=== PATIENT | male | born 2000 | race Caucasian/White ===

== ENCOUNTER 2024-04-08 02:37 | Emergency (ER) | payer BC, SELFPAY ==
[2024-04-08 02:58] VITALS: BP 144/61; BMI 28.9
--- NOTE | 2024-04-08 03:41 | ED.GENMED ---
History of Present Illness
General
Chief Complaint: Alcohol Problem
Source: patient, ambulance crew and police
Exam Limitations: none
Time Seen by Provider: 04/08/24 03:22
Nursing documentation reviewed up to this point in time: agreed with
History of Present Illness
History of Present Illness:
This is a 23-year-old male who was found by police sleeping in the back of his vehicle. He is brought to the ED for further evaluation.
Patient admits to significant alcohol consumption tonight after a break-up with his girlfriend. He denies suicidal thoughts or plan. Denies drug use.
Denies recent injury nor fall.
Past History
Past History
ED Past Medical History: Psychiatric and Other (ADHD)
ED Past Surgical History: None
Social History
Tobacco: Non-smoker
Alcohol: Occasional
Drug: Marijuana
Personal: Single
Living: with family
Employment: Employed
Family History
Family History: Other (Noncontributory)
Phy Exam
Physical Exam
Physical Exam:
GENERAL: 23-year-old male appears his stated age, appears moderately intoxicated, oriented x 3, admits to acute sadness related to recent break-up with his girlfriend but remains cooperative with staff. Denies injury nor falls.
EYE: pupils equal and reactive. anicteric
NECK: Supple, nontender, no meningismus, no significant adenopathy.
ENT: oral mucosa is moist. No rhinorrhea.
CARDIAC: Regular rate and rhythm. no murmur.
LUNGS: Clear breath sounds bilaterally, no acute respiratory distress, no wheezes/rales/rhonchi
ABDOMEN: Soft, nondistended, without focal tenderness, no r/g, no cvat. normoactive BS.
NEUROLOGICAL: Awake and alert, oriented x 3, appears moderately intoxicated, no focal neuro deficits.
SKIN: Warm and dry, normal color, skin intact. No rash.
MUSCULOSKELETAL: No C/C/E. peripheral pulses are full and equal b/l. No palpable tenderness.
PSYCH: Mildly anxious, admits to recent break-up with girlfriend but denies suicidal thoughts or plan.
Scores
Withdrawal Assessment of Alcohol
Withdrawal Assessment Completed?: Not applicable
Course
Vital Signs
Initial and Last Documented VS:
Initial Vital Signs
Temp Pulse Resp BP Pulse Ox
97.7 F 89 20 144/61 100
04/08/24 02:58 04/08/24 02:58 04/08/24 02:58 04/08/24 02:58 04/08/24 02:58
Last Documented Vital Signs
Temp Pulse Resp BP Pulse Ox
97.7 F 89 20 144/61 100
04/08/24 02:58 04/08/24 02:58 04/08/24 02:58 04/08/24 02:58 04/08/24 02:58
MDM/Problems Addressed
Differential Diagnosis Includes:
Patient presents via EMS after he was found asleep in the back of his vehicle.
Admits to significant alcohol consumption tonight but no falls or injuries.
Admits to recent break-up with his girlfriend, somewhat distraught but denies suicidal thoughts or plan.
Appears moderately intoxicated but cooperative, vital signs are stable.
No indication for laboratory studies.
ED staff have successfully gotten a hold of patient's mother who is on her way to retrieve her son.
*Pulse Oximetry
Patient hypoxic: no
*Critical Care Note
Total Time (30-74mins, 75-104mins- exclusive of procedures): Not Applicable
ED Attending Note
-
Portions of this chart may have been created with voice recognition software.� Occasional wrong word or��sound alike� substitutions may have occurred due to the inherent limitations of voice recognition software.
Discharge Plan
Departure
Patient Disposition: Home (Routine Discharge)
Date of Disposition: 04/08/24
Time of Disposition: 03:43
Patient with high blood pressure during this ER visit?: No
Condition: Good
Discharge Problem:
Alcohol intoxication
Instructions: Alcohol Intoxication ED
Prescriptions:
No Action
No Current Medications
0
Referrals:
UNKNOWN - PT NOT,INTERVIEWE [Family Provider] -
Interventions
Interventions:
*Risk Screen - Suicide Last Done: 04/08/24 02:58
*General Assessment Last Done: 04/08/24 02:58
*Neglect/Abuse Screening Last Done: 04/08/24 02:58
ED- Fall Risk Assessment Last Done: 04/08/24 02:58
*ED COVID-19 Vaccine History Last Done: 04/08/24 02:58
*Nursing Disposition Last Done: 04/08/24 04:19
ED- Neurological Assessment Last Done: 04/08/24 02:58
ED-Psychological Assessment Last Done: 04/08/24 02:58
Discharge Date and Time
Discharge Date/Time: 04/08/24 04:19
Print Language: SPANISH
== END 2024-04-08 04:19 | disposition home or self-care (01) ==
LOC: EMR 02:37
PROVIDERS: EMERGENCY PHYSICIAN Emergency Medicine
DX: F10.129 Alcohol abuse with intoxication, unspecified (principal); F90.9 Attention-deficit hyperactivity disorder, unspecified type
CPT/HCPCS: 99282

== ENCOUNTER → 2024-04-09 13:38 | Outpatient (REF) | payer BC, SELFPAY | LOC: RAD 13:38 | PROVIDERS: ATTENDING PHYSICIAN Nurse Practitioner Family | DX: M79.642 Pain in left hand (principal) | CPT/HCPCS: 73130 ==